=== PATIENT | female | born 1950 | race Caucasian/White ===

== ENCOUNTER 2020-04-10 00:29 | Emergency (ER) | payer MEDICARE, OTHER ==
[~2020-04-10] VITALS: Ht 165.1 cm; Wt 47.6 kg
[2020-04-10] MEDS ORDERED: CLARITIN10 M3 PO (00:47)
[2020-04-10 01:12] LABS: ABSOLUTE EOSINOPHILS 0.1 thou/uL (0.0-0.7); ABSOLUTE LYMPHOCYTES 1.6 thou/uL (0.8-5.3); ABSOLUTE MONOCYTES 0.6 thou/uL (0.0-1.2); ABSOLUTE NEUTROPHILS 3.8 thou/uL (1.6-8.1); BASOPHILS 0.8 %; EOSINOPHILS 1.6 %; HEMATOCRIT 39.7 % (37.0-47.0); LYMPHOCYTES 26.5 %; MCH 31.2 pg (26.0-34.0); MCHC 35.2 g/dL (28.0-37.0); MCV 88.5 fL (80.0-100.0); MONOCYTES 9.2 %; NUCLEATED RBCS 0 /100WBC; PLATELET COUNT* 329 thou/uL (150-400); POLYS 61.9 %; RBC 4.49 mil/uL (4.20-5.00); RDW-CV 13.4 % (10.5-14.5); WBC 6.1 thou/uL (4.0-11.0)
[2020-04-10 01:30] LABS: CALCIUM 9.2 mg/dL (8.5-10.1); CREATININE 0.8 mg/dL (0.6-1.3); POTASSIUM 3.5 mmol/L (3.5-5.1)
[2020-04-10 01:33] LABS: ALBUMIN 4.2 g/dL (3.4-5.0); MAGNESIUM 2.1 mg/dL (1.8-2.4); TOTAL BILIRUBIN 0.5 mg/dL (<0.1-1.0); TOTAL PROTEIN 8.4 g/dL (6.4-8.2)
[2020-04-10 01:55] LABS: URINE BILIRUBIN NEGATIVE (Negative); URINE BLOOD TRACE (Negative); URINE CLARITY CLEAR; URINE COLOR YELLOW; URINE GLUCOSE-RANDOM NEGATIVE (Negative); URINE KETONES NEGATIVE (Negative); URINE LEUKOCYTES-REFLEX NEGATIVE (Negative); URINE NITRITE-REFLEX NEGATIVE (Negative); URINE PROTEIN NEGATIVE (Negative); URINE UROBILINOGEN 0.2 E.U./dl (0.2-1.0)
[2020-04-10 03:39] VITALS: BP 123/73
--- NOTE | 2020-04-10 12:30 | EKG ---
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1950 Requested By: Angelica Mcclelland Order Number: [id number] MD: Rizwan Ruvalcaba Measurements Intervals [place] Rate: 94 P: 77 MD: 174 QRS: 49 QRSD: 91 T: 66 QT: 374 QTc: 468 Interpretive Statements Sinus rhythm Possible anteroseptal infarct, old Baseline wander in lead(s) II,III,aVF No previous ECG available for comparison Electronically Signed On 04-10-2020 12:28:48 CDT by Rizwan Ruvalcaba [email or web address] <ELECTRONICALLY SIGNED> By: Rizwan Ruvalcaba MD, [facility] 04/10/20 1228 0034 0034 Rizwan Ruvalcaba MD, [facility] /EPI
== END 2020-04-10 03:41 | disposition home or self-care (01) ==
LOC: M.ERS 00:29
PROVIDERS: Emergency Medicine
DX: E03.9 Hypothyroidism, unspecified (principal); R00.2 Palpitations

== ENCOUNTER 2021-10-14 19:54 | Observation (INO) | payer MEDICARE, OTHER ==
[~2021-10-14] VITALS: Ht 165.1 cm; Wt 54.4 kg
--- NOTE | ~2021-10-14 | CON ---
[address] [address] CONSULTATION Name: PETE DOMINGUEZ Room: [address] Ligia Vasquez#: [id number] Admission: 10/14/21 Attend Phys: Leeanne Zafar MD Discharge: 10/15/21 Date of : 50 Report #: [id number] THIS REPORT FOR: cc: JEB RIVERA MD, CHADWICK MD [place], Roxane S. DO ~ cc: Raul Sexton MD DATE OF CONSULTATION: 10/15/2021 NEUROLOGY CONSULT HISTORY OF PRESENT ILLNESS: The patient is a 71-year-old female who yesterday began to experience dizziness as she was riding in the car at home. The patient has dry eye and she was being fitted for a contact lens. When she got in the car, she began to feel very dizzy. She was also very sick to her stomach and threw up. She decided to come to the emergency room. She had a CT scan of the head and CT angiogram of the head, both of which were unremarkable. In the emergency room, she was given diazepam, Compazine and Benadryl. The dizziness is now gone, but she is afraid that it might come back. She has not gotten out of bed yet. She tells me that 5 years ago, she was diagnosed with vestibular disease. She has some type of left ear dysfunction. This was diagnosed by an ENT physician. She denies hearing loss, ringing in her ears or ear pain. She did not have the headache with the initial event, but last night, as she was lying in bed, she had a headache at the back of the head. This morning, she was given Tylenol, she states that the headache is now gone. PAST MEDICAL HISTORY: Left vestibular dysfunction, low potassium, ENVIRONMENTAL ALLERGIES. PAST SURGICAL HISTORY: Unremarkable. MEDICATIONS: Loratadine 10 mg p.r.n. ALLERGIES: None. SOCIAL HISTORY: The patient does not smoke, drink or use recreational drugs. PHYSICAL EXAMINATION: VITAL SIGNS: Temperature 37.1, pulse rate 99, respiratory rate 16, blood pressure 110/56. Bedside pulse oximetry 98% on 2 liters nasal cannula. NEUROLOGIC: Cranial nerves 2-12 are grossly intact. There is no evidence of nystagmus, vertical or horizontal. Motor exam demonstrates the patient to be able to lift her arms above her head and to lift each leg to at least a 45-degree angle from the bed. Reflexes are trace throughout[place] [address] CONSULTATION Name: PETE DOMINGUEZ Room: [address] Pedro#: [id number] Admission: 10/14/21 Attend Phys: Leeanne Zafar MD Discharge: 10/15/21 Date of : 50 Report #: [id number] are flexor. There is no evidence of dysmetria with [id number]. Gait was not tested. LABORATORY DATA: Hematology: White blood cell count 10.5, hemoglobin 13.8, hematocrit 39.3, MCV 88.6, platelet count 310,000. Urinalysis, 1+ ketones, trace blood, trace glucose. Chemistry: Sodium 136, potassium 3.7, chloride 102, carbon dioxide 25, BUN 12, creatinine 0.6, GFR 99, glucose 98, calcium 8.7, magnesium 2.2, total bilirubin 0.9, AST 17, ALT 17, alkaline phosphatase 48. Troponin less than 4. BNP 62, total protein 7.5, albumin 3.8. Serology: COVID negative. IMPRESSION AND PLAN: This patient has had an episode of vertigo. The vertigo has now resolved. This is most likely secondary to left vestibular dysfunction. The patient has had a CT/CTA of the head. This was unremarkable. At this point, I would not necessarily send the patient home with medication, although sometimes low dose Valium 2 mg twice a day, can be given for few days to help with vertiginous symptoms, but as I said as the patient's symptoms have resolved, I would not recommend this. As long as she is safe to walk, she may be able to go home today. She is going to have a liquid lunch to see if she can tolerate this. Please do not hesitate to contact me if you have any questions about this patient. By: [id number] [id number] Whaley DO /nt
[~2021-10-14 19:54] MED LIST: CLARITIN10 M3 PO
[2021-10-14 20:03] VITALS: BP 140/74
[2021-10-14 20:21] LABS: ABSOLUTE BASOPHILS 0.1 thou/uL (0.0-0.2); ABSOLUTE EOSINOPHILS 0.1 thou/uL (0.0-0.7); ABSOLUTE LYMPHOCYTES 1.2 thou/uL (0.8-5.3); ABSOLUTE MONOCYTES 0.5 thou/uL (0.0-1.2); ABSOLUTE NEUTROPHILS 8.7 thou/uL (1.6-8.1); BASOPHILS 0.5 %; EOSINOPHILS 0.5 %; HEMATOCRIT 39.3 % (37.0-47.0); HEMOGLOBIN 13.8 gm/dL (12.0-15.0); LYMPHOCYTES 11.4 %; MCV 88.6 fL (80.0-100.0); MONOCYTES 4.8 %; MPV 6.6 fl. (7.2-11.1); NUCLEATED RBCS 0 /100WBC; PLATELET COUNT* 310 thou/uL (150-400); POLYS 82.8 %; RBC 4.44 mil/uL (4.20-5.00); RDW-CV 13.1 % (10.5-14.5); WBC 10.5 thou/uL (4.0-11.0)
[2021-10-14 20:25] LABS: CALCIUM 9.2 mg/dL (8.5-10.1); CREATININE 0.7 mg/dL (0.6-1.3); POTASSIUM 3.5 mmol/L (3.5-5.1)
[2021-10-14 20:36] LABS: ALBUMIN 4.4 g/dL (3.4-5.0); MAGNESIUM 2.2 mg/dL (1.8-2.4); TOTAL BILIRUBIN 0.8 mg/dL (<0.1-1.0)
[2021-10-14 23:09] LABS: URINE BILIRUBIN NEGATIVE (Negative); URINE BLOOD TRACE (Negative); URINE CLARITY CLEAR; URINE COLOR STRAW; URINE GLUCOSE-RANDOM TRACE (Negative); URINE KETONES 1+ (Negative); URINE LEUKOCYTES-REFLEX NEGATIVE (Negative); URINE NITRITE-REFLEX NEGATIVE (Negative); URINE PROTEIN NEGATIVE (Negative); URINE UROBILINOGEN 0.2 E.U./dl (0.2-1.0)
[2021-10-15 00:40] VITALS: BP 132/73
[2021-10-15 08:00] VITALS: BP 110/56
[2021-10-15 12:02] LABS: ALBUMIN 3.8 g/dL (3.4-5.0); CALCIUM 8.7 mg/dL (8.5-10.1); CREATININE 0.6 mg/dL (0.6-1.3); POTASSIUM 3.7 mmol/L (3.5-5.1); TOTAL BILIRUBIN 0.9 mg/dL (<0.1-1.0); TOTAL PROTEIN 7.5 g/dL (6.4-8.2)
[2021-10-15 13:42] VITALS: BP 110/56
[2021-10-15 15:37] VITALS: BP 110/56
[2021-10-16 05:36] LABS: GLYCOHEMOGLOBIN (HGB A1C) 5.4 % (4.8-5.6)
--- NOTE | 2021-10-19 08:51 | EKG ---
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
== END 2021-10-15 14:40 | disposition home or self-care (01) ==
LOC: M.ERS 19:54 → M.3W 22:57 → M.TBA-ER 22:57 → M.3W 10-15 00:51
PROVIDERS: Emergency Medicine; Internal Medicine; ADMIT Internal Medicine; ATTEND Internal Medicine
DX: R42 Dizziness and giddiness (principal); E03.9 Hypothyroidism, unspecified; R11.2 Nausea with vomiting, unspecified; R20.0 Anesthesia of skin; Z20.822 Contact with and (suspected) exposure to COVID-19; Z79.899 Other long term (current) drug therapy; Z86.73 Personal history of transient ischemic attack (TIA), and cerebral infarction without residual deficits